=== PATIENT | male | born 1950 | race American Indian/Alaskan Native ===

== ENCOUNTER 2017-06-13 23:51 | Inpatient (IN) | payer MEDICARE, OTHER ==
[2017-06-14] MEDS ORDERED: NACL 0.9% 500 ML IR ONE (00:54)
--- NOTE | 2017-06-14 01:33 | Emergency Department Report ---
ED Male HPI - General Chief complaint: Urogenital-Male Stated complaint: ABDOMINAL PAIN Time Seen by Provider: 06/14/17 01:14 Source: patient, family Mode of arrival: Wheelchair Limitations: No Limitations - History of Present Illness Initial comments: Patient is 66 years old male with history of amyotrophic lateral sclerosis and benign prostatic hypertrophy. Patient presented to the ER with difficulty urinating since yesterday. Patient had history of urinary retention before. He 's been passing clots. Patient denied any fever, nausea or vomiting. MD Complaint: other (urine retention) -: Gradual - Related Data Allergies Allergy/AdvReac Type Severity Reaction Status Date / Time aspirin Allergy Vomiting Verified 06/14/17 00:21 ED Review of Systems ROS: Stated complaint: ABDOMINAL PAIN Other details as noted in HPI Comment: All other systems reviewed and negative Constitutional: denies: chills, fever Respiratory: denies: cough, orthopnea, shortness of breath, SOB with exertion Cardiovascular: denies: chest pain, palpitations, dyspnea on exertion Gastrointestinal: denies: abdominal pain, nausea, vomiting, diarrhea, constipation, hematemesis Genitourinary: dysuria, hematuria Neurological: denies: headache, weakness, numbness, paresthesias, confusion, abnormal gait ED Past Medical Hx - Past Medical History Additional medical history: ALS - Surgical History Additional Surgical History: back - Social History Smoking Status: Never Smoker Substance Use Type: None ED Physical Exam - General Limitations: No Limitations General appearance: alert, in no apparent distress - Head Head exam: Present: atraumatic, normocephalic, normal inspection - Eye Eye exam: Present: normal appearance, PERRL - ENT ENT exam: Present: normal exam, normal orophraynx, mucous membranes moist, normal external ear exam - Neck Neck exam: Present: normal inspection, full ROM. Absent: tenderness, meningismus, lymphadenopathy - Respiratory Respiratory exam: Present: normal lung sounds bilaterally. Absent: respiratory distress, wheezes, rales, rhonchi, stridor, accessory muscle use, decreased breath sounds, prolonged expiratory - Cardiovascular Cardiovascular Exam: Present: regular rate, normal rhythm, normal heart sounds - GI/Abdominal GI/Abdominal exam: Present: soft, tenderness (suprapubic), normal bowel sounds. Absent: distended, guarding, rebound, rigid, organomegaly, mass, bruit, pulsatile mass, hernia - Extremities Exam Extremities exam: Present: normal inspection, full ROM, normal capillary refill - Back Exam Back exam: Present: normal inspection, full ROM. Absent: CVA tenderness (L) - Neurological Exam Neurological exam: Present: alert, oriented X3, CN II-XII intact - Skin Skin exam: Present: warm, intact, normal color ED Course Vital Signs 06/14/17 00:06 Temperature 98.3 F Pulse Rate 107 H Respiratory 18 Rate Blood Pressure 159/103 O2 Sat by Pulse 96 Oximetry - Reevaluation(s) Reevaluation #1: 06/14/17 04:33 I discussed the patient was Dr Mata, he advised to admit the patient to hospitalist and he will see the patient. ED Medical Decision Making - Lab Data Result diagrams: 06/14/17 01:56 06/14/17 01:56 Critical care attestation.: If time is entered above; I have spent that time in minutes in the direct care of this critically ill patient, excluding procedure time. ED Disposition Clinical Impression: Enlarged prostate with urinary retention Disposition: OP ADMIT IP TO THIS HOSP Is pt being admited?: Yes Condition: Stable
[2017-06-14] MEDS ORDERED: ZOFRAN IM ONE (02:29)
[2017-06-14] MEDS ORDERED: MORPHINE IM ONE ×2 (02:29→03:48)
[2017-06-14] MEDS ORDERED: SUBLIMAZE IV ONE ×3 (02:34→05:10)
[2017-06-14 02:51] LABS: Basophils % (Auto) 0.4 % (0.0-1.8); Hematocrit 50.6 % (35.5-45.6); Lymphocytes # (Auto) 1.1 K/mm3 (1.2-5.4); Lymphocytes % (Auto) 13.8 % (13.4-35.0); Mean Corpuscular HGB Conc 34 % (32-34); Mean Corpuscular Hemoglobin 31 pg (28-32); Mean Corpuscular Volume 92 fl (84-94); Monocytes # (Auto) 0.4 K/mm3 (0.0-0.8); Monocytes % (Auto) 4.4 % (0.0-7.3); Platelet Count 232 K/mm3 (140-440); Red Blood Count 5.49 M/mm3 (3.65-5.03); Red Cell Distribution Width 13.6 % (13.2-15.2)
[2017-06-14 03:00] LABS: Alanine Aminotransferase 13 units/L (7-56); Albumin 4.5 g/dL (3.9-5); BUN/Creatinine Ratio 14; Blood Urea Nitrogen 11 mg/dL (9-20); Hemolysis Index 14
[2017-06-14 03:01] LABS: INR 1.05 (0.87-1.13)
[2017-06-14 03:02] LABS: Partial Thromboplastin Time 28.6 Sec. (24.2-36.6)
[2017-06-14] MEDS ORDERED: MORPHINE ONE (03:44)
[2017-06-14] MEDS ORDERED: ZOFRAN IV PRN ×2 (05:30→10:26)
[2017-06-14] MEDS ORDERED: MORPHINE IV PRN (05:30)
[2017-06-14] MEDS ORDERED: TYLENOL PO PRN (05:30)
[2017-06-14] MEDS ORDERED: SODIUM CHLORIDE FLUSH SYRINGE 10 ML IV PRN (05:30)
--- NOTE | 2017-06-14 05:31 | History and Physical Report ---
History of Present Illness Date of examination: 06/14/17 History of present illness: 66-year-old man with a history of ALS, review of systems emergency room with complaints of not able to urinate since yesterday. He is not on any medication for his prostate. A Foleyin the emergency room, some blood clots are obtained, he was started on CBI Review Of Systems: Constitutional: no weight loss Ears, eyes, nose, mouth and throat: no nasal congestion, no nasal discharge, no sinus pressure, blurry vision, diplopia Neck: No neck pain or rigidity. Cardiovascular: no chest pain, orthopnea, palpitations Respiratory: NO sinus breath, cough Gastrointestinal: no abdominal pain, hematochezia Genitourinary : no dysuria, frequency , hematuria Musculoskeletal: no muscle ache Integumentary: no rash, no pruritis Neurological: no parathesias, focal weakness Endocrine: no cold or heat intolerance, no polyuria or polydipsia Hematologic/Lymphatic: no easy bruising, no easy bleeding, no gland swelling Allergic/Immunologic: no urticaria, no angioedema. PAST MEDICAL HISTORY: None PAST SURGICAL HISTORY: c/section, hernia repair SOCIAL HISTORY: Denies alcohol, tobacco, drugs FAMILY HISTORY: Hypertension C Medications and Allergies Allergies Allergy/AdvReac Type Severity Reaction Status Date / Time aspirin Allergy Vomiting Verified 06/14/17 00:21 Active Meds: Active Medications Hydromorphone HCl (Dilaudid) 1 mg IV ONCE ONE Stop: 06/14/17 05:30 Exam - Physical Exam Narrative exam: Gen. appearance: Patient lying in bed, no apparent distress HEENT: Normocephalic, atraumatic, pupils equally round and reactive to light, extraocular movement intact, and no sclericterus,. No JVD or thyromegaly or nodule,neck supple, no carotid bruit ,mucous membranes moist, no exudate or erythema Heart: S1, S2, regular rate and rhythm Lungs: Clear to auscultation bilaterally, breathing comfortable Abdomen: Positive bowel sounds, nontender, nondistended, no organomegaly Extremity: No edema, cyanosis, clubbing Skin: No rash, nodules, warm, dry Neuro: Oriented 3, cranial nerves II-12 intact, speech is fluent, motor and sensory intact - Constitutional Vitals: Temp Pulse Resp BP Pulse Ox 98.3 F 107 H 18 159/103 96 06/14/17 00:06 06/14/17 00:06 06/14/17 00:06 06/14/17 00:06 06/14/17 00:06 Results - Labs CBC & Chem 7: 06/14/17 01:56 06/14/17 01:56 Labs: Abnormal lab results 06/14/17 06/14/17 Range/Units 01:56 01:56 RBC 5.49 H (3.65-5.03) M/mm3 Hgb 17.0 H (11.8-15.2) gm/dl Hct 50.6 H (35.5-45.6) % Lymph # 1.1 L (1.2-5.4) K/mm3 Seg Neutrophils % 81.4 H (40.0-70.0) % Glucose 122 H (75-100) mg/dL - Imaging and Cardiology EKG: image reviewed Chest x-ray: image reviewed CT scan - chest: report reviewed Assessment and Plan Assessment Urinary retention BPH ALS Plan Continue CBI, urology consult to see the patient DVT prophylaxis
[2017-06-14] MEDS ORDERED: DILAUDID IV ONE ×2 (05:39→05:40)
[2017-06-14] MEDS ORDERED: NACL 0.9% IR ONE (05:40)
--- NOTE | 2017-06-14 09:37 | Event Note ---
Date: 06/14/17 Patient with hematuria, urinary retention. I have seen and examined him. Urology to evaluate. Will add Hydralazine iv prn for hypertension.
[2017-06-14] MEDS ORDERED: APRESOLINE IV PRN (09:39)
--- NOTE | 2017-06-14 09:52 | Progress Note ---
Assessment and Plan severe sp distension ALS in a lot of pain for stat cysto dictated Subjective Date of service: 06/14/17 Principal diagnosis: hematuria // clots // retention Objective - Constitutional Vitals: Vital Signs - 12hr 06/14/17 06/14/17 06/14/17 00:06 05:35 05:40 Temperature 98.3 F Pulse Rate 107 H Respiratory 18 Rate Blood Pressure 159/103 Blood Pressure [Right] O2 Sat by Pulse 96 94 94 Oximetry 06/14/17 06/14/17 06/14/17 05:50 06:00 06:10 Temperature Pulse Rate Respiratory Rate Blood Pressure 168/115 Blood Pressure [Right] O2 Sat by Pulse 93 93 94 Oximetry 06/14/17 06/14/17 06:41 07:17 Temperature 98.7 F Pulse Rate 89 84 Respiratory 17 18 Rate Blood Pressure 163/110 Blood Pressure 160/100 [Right] O2 Sat by Pulse 98 97 Oximetry General appearance: Present: severe distress - Neck Neck: supple - Respiratory Respiratory effort: labored - Gastrointestinal General gastrointestinal: Present: tender, distended - Genitourinary Male genitourinary: tender - Labs CBC & Chem 7: 06/14/17 01:56 06/14/17 01:56 Labs: Abnormal lab results 06/14/17 06/14/17 Range/Units 01:56 01:56 RBC 5.49 H (3.65-5.03) M/mm3 Hgb 17.0 H (11.8-15.2) gm/dl Hct 50.6 H (35.5-45.6) % Lymph # 1.1 L (1.2-5.4) K/mm3 Seg Neutrophils % 81.4 H (40.0-70.0) % Glucose 122 H (75-100) mg/dL
[2017-06-14] MEDS ORDERED: DIPRIVAN 10 MG/ML IV ONE (09:59)
[2017-06-14] MEDS ORDERED: XYLOCAINE MPF 2% ONE (09:59)
[2017-06-14] MEDS ORDERED: LEVAQUIN 500MG/100ML 500 MG/100 ML BAG IV ONE (10:00)
[2017-06-14] MEDS ORDERED: DILAUDID ONE (10:00)
[2017-06-14] MEDS ORDERED: DILAUDID IV PRN (10:26)
--- NOTE | 2017-06-14 10:27 | Anesthesia Day of Surgery ---
Anesthesia Day of Surgery - Day of Surgery Patient Examined: Yes Patient H&P Reviewed: Yes Patient is NPO: Yes
[2017-06-14] MEDS ORDERED: NACL 0.9% 1000 ML 1,000 ML ONE (10:50)
[2017-06-14] MEDS: SODIUM CHLORIDE FLUSH SYRINGE 10 ML IV SCH ×2 (10:54→22:51)
[2017-06-14] MEDS ORDERED: VERSED IV NR (11:00)
[2017-06-14] MEDS ORDERED: SORBITOL-MANNITOL IRRIG IR ONE ×3 (11:26)
[2017-06-14] MEDS ORDERED: ZOFRAN ONE (11:37)
[2017-06-14] MEDS ORDERED: METHYLENE BLUE ONE (11:56)
[2017-06-14] MEDS ORDERED: LASIX ONE (12:23)
--- NOTE | 2017-06-14 12:32 | Post Operative Note ---
Date of procedure: 06/14/17 Pre-op diagnosis: hematuria clots Post-op diagnosis: same Findings: trauma Procedure: cysto evac clots tur Anesthesia: GETA Surgeon: JANICE MATTA Estimated blood loss: 50-100ml Pathology: list (bladder neck) Specimen disposition: to lab Condition: stable Disposition: PACU
--- NOTE | 2017-06-14 12:42 | Operative Report ---
PREOPERATIVE DIAGNOSES: Gross hematuria, urinary retention, clot retention. POSTOPERATIVE DIAGNOSES: Irregular trauma to the bladder neck and prostatic urethra with clot retention. PROCEDURE: Cystoscopy, evacuation of clots, fulguration, resection of the irregularity of the bladder neck, and cystogram. SURGEON: Jaswinder Mata MD ANESTHESIA: General. FINDINGS: This is a gentleman who was in severe pain. He has ALS. His bladder was distended to the umbilicus. He now presents for cystoscopy. DESCRIPTION OF PROCEDURE: The patient was brought to the operating room and placed on the operating table. Following induction of anesthesia, placed in lithotomy position, prepped and draped in usual sterile fashion. Cystourethroscopy showed blood from the meatus. The bladder was distended. The catheter was not draining. We looked inside the urethra. The bladder neck was severely elevated. There was a prominent bulbous urethra. There was no stricture. The tissue at the bladder neck was irregular and once we got in, we evacuated a good amount of clots and blood from the bladder. There were no bladder lesions. Bladder was smooth and nontrabeculated. Inflammatory changes in bladder neck and prostatic urethra. This was cauterized and a small amount of resection was done with minimal to flatten out the bladder neck. Even at the end, it was very hard to get a catheter in because of the elevation of bladder neck. We placed a 22 Councill which was minimally tinged. The patient tolerated the procedure well. Cystogram showed the catheter in good position, brought to recovery in stable condition. JOB# [id number] GREGORIO/AYANA
[2017-06-14] MEDS ORDERED: NACL 0.9% 1,000 ML IR ONE (12:52)
[2017-06-14] MEDS ORDERED: LEVAQUIN 500MG/100ML 500 MG/100 ML BAG IV NR (13:00)
--- NOTE | 2017-06-14 13:23 | Consultation ---
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 He has been catheterizing himself and had gross hematuria. He is still with clots. He was admitted through the Emergency Room in the middle of the night. His bladder is distended. He is in lots of pain at this point. He is still with clots, I suspect. He cannot communicate well. He does not have an urologist. He thinks he has had a cystoscopy, but he is in a lot of pain, here with his son. PAST MEDICAL HISTORY: ALS. PAST SURGICAL HISTORY: No surgery. SOCIAL HISTORY: Negative. FAMILY HISTORY: Negative. ALLERGIES: Negative. MEDICATION: Pain medications. REVIEW OF SYSTEMS: Abdominal pain, difficulty speaking. PHYSICAL EXAMINATION: GENERAL: He is awake. He is in pain. He is uncomfortable. He has slurred speech. He is in moderate distress. ABDOMEN: Distended to his umbilicus. Solares is not draining. ____ GENITALIA: Mild tenderness around the catheter. GENITOURINARY: Testes are atrophic. IMPRESSION: Urinary retention. His hemoglobin is fine. His creatinine is 0.8. We will give him 500 of Levaquin and take him down for cystoscopy as soon as the OR is ready. JOB# [id number] GREGORIO/AYANA
[2017-06-14 14:26] LABS: Bilirubin,Urine NEG (Negative); Blood,Urine LG (Negative); Color,Urine Red (Yellow); Urobilinogen,Urine < 2.0 mg/dL (<2.0)
[2017-06-14 14:29] LABS: RBC,Urine > 182.0 /HPF (0.0-6.0); WBC,Urine > 182.0 /HPF (0.0-6.0)
[2017-06-14] MEDS: NACL 0.9% 1000 ML 1,000 ML IV SCH (20:57)
[2017-06-15] MEDS: NACL 0.9% 1000 ML 1,000 ML IV SCH (05:39)
--- NOTE | 2017-06-15 08:05 | Progress Note ---
History Interval history: patient with urinary retention, hematuria Hospitalist Physical - Constitutional Vitals: Temp Pulse Resp BP Pulse Ox 98.7 F 75 19 129/77 94 06/14/17 23:18 06/14/17 23:18 06/14/17 23:18 06/14/17 23:18 06/14/17 23:18 General appearance: Present: severe distress Results - Labs CBC & Chem 7: 06/15/17 07:26 06/15/17 07:26 Labs: Laboratory Last Values WBC 8.0 K/mm3 (4.5-11.0) 06/14/17 01:56 RBC 5.49 M/mm3 (3.65-5.03) H 06/14/17 01:56 Hgb 17.0 gm/dl (11.8-15.2) H 06/14/17 01:56 Hct 50.6 % (35.5-45.6) H 06/14/17 01:56 MCV 92 fl (84-94) 06/14/17 01:56 MCH 31 pg (28-32) 06/14/17 01:56 MCHC 34 % (32-34) 06/14/17 01:56 RDW 13.6 % (13.2-15.2) 06/14/17 01:56 Plt Count 232 K/mm3 (140-440) 06/14/17 01:56 Lymph % (Auto) 13.8 % (13.4-35.0) 06/14/17 01:56 [place] % (Auto) 4.4 % (0.0-7.3) 06/14/17 01:56 Eos % (Auto) 0.0 % (0.0-4.3) 06/14/17 01:56 Baso % (Auto) 0.4 % (0.0-1.8) 06/14/17 01:56 Lymph # 1.1 K/mm3 (1.2-5.4) L 06/14/17 01:56 [place] # 0.4 K/mm3 (0.0-0.8) 06/14/17 01:56 Eos # 0.0 K/mm3 (0.0-0.4) 06/14/17 01:56 Baso # 0.0 K/mm3 (0.0-0.1) 06/14/17 01:56 Seg Neutrophils % 81.4 % (40.0-70.0) H 06/14/17 01:56 Seg Neutrophils # 6.5 K/mm3 (1.8-7.7) 06/14/17 01:56 PT 14.3 Sec. (12.2-14.9) 06/14/17 01:56 INR 1.05 (0.87-1.13) 06/14/17 01:56 APTT 28.6 Sec. (24.2-36.6) 06/14/17 01:56 Sodium 137 mmol/L (137-145) 06/14/17 01:56 Potassium 3.8 mmol/L (3.6-5.0) 06/14/17 01:56 Chloride 98.5 mmol/L (98-107) 06/14/17 01:56 Carbon Dioxide 22 mmol/L (22-30) 06/14/17 01:56 Anion Gap 20 mmol/L 06/14/17 01:56 BUN 11 mg/dL (9-20) 06/14/17 01:56 Creatinine 0.8 mg/dL (0.8-1.5) 06/14/17 01:56 Estimated GFR > 60 ml/min 06/14/17 01:56 BUN/Creatinine Ratio 14 % 06/14/17 01:56 Glucose 122 mg/dL (75-100) H 06/14/17 01:56 Calcium 9.0 mg/dL (8.4-10.2) 06/14/17 01:56 Total Bilirubin 0.90 mg/dL (0.1-1.2) 06/14/17 01:56 AST 22 units/L (5-40) 06/14/17 01:56 ALT 13 units/L (7-56) 06/14/17 01:56 Alkaline Phosphatase 58 units/L (35-129) 06/14/17 01:56 Total Protein 7.3 g/dL (6.3-8.2) 06/14/17 01:56 Albumin 4.5 g/dL (3.9-5) 06/14/17 01:56 Albumin/Globulin Ratio 1.6 % 06/14/17 01:56 Urine Color Red (Yellow) 06/14/17 13:39 Urine Turbidity Clear (Clear) 06/14/17 13:39 Urine pH 6.0 (5.0-7.0) 06/14/17 13:39 Ur Specific [place] 1.004 (1.003-1.030) 06/14/17 13:39 Urine Protein 30 mg/dl mg/dL (Negative) 06/14/17 13:39 Urine Glucose (UA) Neg mg/dL (Negative) 06/14/17 13:39 Urine Ketones Neg mg/dL (Negative) 06/14/17 13:39 Urine Blood Lg (Negative) 06/14/17 13:39 Urine Nitrite Neg (Negative) 06/14/17 13:39 Urine Bilirubin Neg (Negative) 06/14/17 13:39 Urine Urobilinogen < 2.0 mg/dL (<2.0) 06/14/17 13:39 Ur Leukocyte Esterase Tr (Negative) 06/14/17 13:39 Urine WBC (Auto) > 182.0 /HPF (0.0-6.0) H 06/14/17 13:39 Urine RBC (Auto) > 182.0 /HPF (0.0-6.0) 06/14/17 13:39
[2017-06-15 08:10] LABS: Basophils % (Auto) 0.2 % (0.0-1.8); Eosinophils % (Auto) 0.2 % (0.0-4.3); Hematocrit 43.2 % (35.5-45.6); Hemoglobin 14.5 gm/dl (11.8-15.2); Lymphocytes # (Auto) 1.6 K/mm3 (1.2-5.4); Lymphocytes % (Auto) 17.4 % (13.4-35.0); Mean Corpuscular HGB Conc 34 % (32-34); Mean Corpuscular Hemoglobin 31 pg (28-32); Mean Corpuscular Volume 93 fl (84-94); Monocytes # (Auto) 0.9 K/mm3 (0.0-0.8); Monocytes % (Auto) 9.2 % (0.0-7.3); Platelet Count 168 K/mm3 (140-440); Red Blood Count 4.65 M/mm3 (3.65-5.03); Red Cell Distribution Width 13.6 % (13.2-15.2)
[2017-06-15 08:29] LABS: BUN/Creatinine Ratio 16; Blood Urea Nitrogen 16 mg/dL (9-20); Calcium 7.9 mg/dL (8.4-10.2); Hemolysis Index 9
--- NOTE | 2017-06-15 08:29 | Fluoroscopy Report ---
FLUOROSCOPY CYSTOGRAM STATIC - OR INDICATION: Urine retention, blood clots, hematuria. COMPARISON: None similar at this institution. FINDINGS: Fluoroscopy provided by radiology during static cystogram by urology. 25 mL Omnipaque 300 utilized. 5 fluoroscopic images were captured. Initial image demonstrates lower lumbar fusion hardware and posterior decompression changes. Contrast along a catheter also noted with later images demonstrating it advanced into the urinary bladder with small amount of contrast surrounding its balloon and slight irregular filling of the urinary bladder as well. No contrast noted towards the bladder base. Fulguration of irregular tissue, evacuation of blood clots and cystogram was performed. Final image labelled "Drainage" demonstrates no residual bladder contrast. CONCLUSION: Fluoroscopy guidance provided for intraoperative cystogram, as described. Please correlate with procedural report by Dr. Mata. Thank you for the opportunity to participate in this patient's care.
[2017-06-15] MEDS: SODIUM CHLORIDE FLUSH SYRINGE 10 ML IV SCH (10:04)
--- NOTE | 2017-06-15 12:18 | Progress Note ---
Assessment and Plan markedly improved happy no pain here with son home with keller when medically cleared f/u gu in 2 weeks Subjective Date of service: 06/15/17 Principal diagnosis: hematuria // clots // retention Objective - Constitutional Vitals: Vital Signs - 12hr 06/15/17 07:25 Temperature 97.3 F L Pulse Rate 65 Respiratory 18 Rate Blood Pressure 118/77 O2 Sat by Pulse 95 Oximetry General appearance: Present: no acute distress - Labs CBC & Chem 7: 06/15/17 07:26 06/15/17 07:26 Labs: Abnormal lab results 06/14/17 06/15/17 06/15/17 Range/Units 13:39 07:26 07:26 [place] % (Auto) 9.2 H (0.0-7.3) % [place] # 0.9 H (0.0-0.8) K/mm3 Seg Neutrophils % 73.0 H (40.0-70.0) % Chloride 107.3 H (98-107) mmol/L Calcium 7.9 L (8.4-10.2) mg/dL Urine WBC (Auto) > 182.0 H (0.0-6.0) /HPF
--- NOTE | 2017-06-15 14:17 | Discharge Summary ---
Providers - Providers Date of Admission: 06/14/17 05:30 Date of discharge: 06/15/17 Attending physician: DWAINE KING 06/14/17 04:32 Consult to Physician [CONS] Stat Comment: Dr. Loya (er dr) spoke with Dr. Matta Consulting Provider: JANICE MATTA Physician Instructions: Reason For Exam: here in the retention with clots Primary care physician: DWAINE WATTERS Hospitalization Condition: Fair Disposition: DC-01 TO HOME OR SELFCARE Core Measure Documentation - Palliative Care Palliative Care/ Comfort Measures: Not Applicable Exam - Constitutional Vitals: Temp Pulse Resp BP Pulse Ox 97.3 F L 65 18 118/77 95 06/15/17 07:25 06/15/17 07:25 06/15/17 07:25 06/15/17 07:25 06/15/17 07:25 Plan Activity: advance as tolerated Diet: low fat, low cholesterol, low salt Additional Instructions: 1.Follow up with PCP in 1 week. 2.Follow up with Dr. Pinto in 2 weeks. 3.Discharge home with keller catheter,leg bag.
[2017-06-15] MEDS ORDERED: LEVAQUIN 500MG/100ML 500 MG/100 ML BAG IV SCH (15:00)
[2017-06-15 17:16] VITALS: BP 134/79
== END 2017-06-15 18:10 | disposition home or self-care (01) | DRG 717 ==
LOC: ED 23:51 → 3A 06-14 05:30
PROVIDERS: ADMIT Internal Medicine; ATTEND Internal Medicine
PROC: 0TBB8ZZ Excision of Bladder, Via Natural or Artificial Opening Endoscopic (ICD-10-PCS; principal; 2017-06-14)
PROC: 0TCC8ZZ Extirpation of Matter from Bladder Neck, Via Natural or Artificial Opening Endoscopic (ICD-10-PCS; 2017-06-14)
DX: N40.1 Benign prostatic hyperplasia with lower urinary tract symptoms (principal); G12.21 Amyotrophic lateral sclerosis; R33.8 Other retention of urine; Z88.6 Allergy status to analgesic agent; Z82.49 Family history of ischemic heart disease and other diseases of the circulatory system
CPT/HCPCS: 36415; 74430; 80048; 80053; 81001; 85025; 85610; 85730; 87086; 88305; 96372; 96374; J1170; J1940; J1956; J2270; J2405; J2704; J3010; J7030; Q9967; Q9968

== ENCOUNTER 2017-07-10 14:31 | Inpatient (IN) | payer MEDICARE, OTHER ==
[2017-07-10] MEDS ORDERED: DILAUDID IV ONE ×2 (18:00→20:34)
[2017-07-10 18:20] LABS: Basophils % (Auto) 0.3 % (0.0-1.8); Hematocrit 50.8 % (35.5-45.6); Hemoglobin 16.8 gm/dl (11.8-15.2); Lymphocytes # (Auto) 0.7 K/mm3 (1.2-5.4); Lymphocytes % (Auto) 7.8 % (13.4-35.0); Mean Corpuscular HGB Conc 33 % (32-34); Mean Corpuscular Hemoglobin 30 pg (28-32); Mean Corpuscular Volume 92 fl (84-94); Monocytes # (Auto) 0.3 K/mm3 (0.0-0.8); Monocytes % (Auto) 3.2 % (0.0-7.3); Platelet Count 261 K/mm3 (140-440); Red Blood Count 5.55 M/mm3 (3.65-5.03); Red Cell Distribution Width 13.1 % (13.2-15.2)
[2017-07-10 18:31] LABS: INR 1.02 (0.87-1.13)
[2017-07-10 18:32] LABS: Partial Thromboplastin Time 29.1 Sec. (24.2-36.6)
[2017-07-10 18:40] LABS: Alanine Aminotransferase 11 units/L (7-56); Albumin 4.3 g/dL (3.9-5); BUN/Creatinine Ratio 14; Blood Urea Nitrogen 11 mg/dL (9-20); Hemolysis Index 0
--- NOTE | 2017-07-10 20:28 | Emergency Department Report ---
ED Male HPI - General Chief complaint: Urogenital-Male Stated complaint: CATHETER CLOGGED Time Seen by Provider: 07/10/17 17:17 Source: patient Mode of arrival: Wheelchair Limitations: No Limitations - History of Present Illness Initial comments: Patient complains of Solares catheter done on any urine. He is also having suprapubic abdominal pain. MD Complaint: other (Solares catheter is blocked.) -: Gradual Radiation: none Severity: severe Severity scale (0 -10): 8 Quality: sharp Consistency: constant Improves with: none Worsens with: none indwelling catheter urinary retention - Related Data Previous Rx's Medication Instructions Recorded Last Taken Type Levofloxacin [Levaquin TAB] 500 mg PO QDAY #10 tablet 06/15/17 Unknown Rx Allergies Allergy/AdvReac Type Severity Reaction Status Date / Time aspirin Allergy Vomiting Verified 06/14/17 00:21 ED Review of Systems ROS: Stated complaint: CATHETER CLOGGED Other details as noted in HPI Comment: All other systems reviewed and negative Constitutional: denies: chills, fever Eyes: denies: vision change ENT: denies: congestion Respiratory: denies: shortness of breath, SOB with exertion, SOB at rest Cardiovascular: denies: chest pain, palpitations, syncope Endocrine: no symptoms reported Gastrointestinal: abdominal pain, diarrhea. denies: nausea, vomiting, constipation Genitourinary: other (Urinary Obstruction) Musculoskeletal: denies: back pain, joint swelling Skin: denies: lesions, change in color Neurological: denies: headache, numbness, paresthesias Psychiatric: denies: anxiety, auditory hallucinations, visual hallucinations Hematological/Lymphatic: denies: easy bleeding, easy bruising ED Past Medical Hx - Past Medical History Previous Medical History?: Yes Additional medical history: ALS, indwelling cath - Surgical History Additional Surgical History: back - Social History Smoking Status: Unknown if ever smoked Substance Use Type: None - Medications Home Medications: Home Medications Medication Instructions Recorded Confirmed Last Taken Type Levofloxacin [Levaquin TAB] 500 mg PO QDAY #10 tablet 06/15/17 Unknown Rx ED Physical Exam - General Limitations: Other (Dinorah Gherigs disease) General appearance: alert - Head Head exam: Present: atraumatic, normocephalic, normal inspection - Eye Eye exam: Present: normal appearance, PERRL, EOMI Pupils: Present: normal accommodation - ENT ENT exam: Present: normal exam - Neck Neck exam: Present: normal inspection, full ROM - Respiratory Respiratory exam: Present: normal lung sounds bilaterally. Absent: wheezes, rhonchi - Cardiovascular Cardiovascular Exam: Present: regular rate, normal rhythm, normal heart sounds - GI/Abdominal GI/Abdominal exam: Present: soft, normal bowel sounds. Absent: distended (Mild suprapubic tenderness to palpation.), guarding, organomegaly, mass - Rectal Rectal exam: Present: deferred - exam: Present: normal inspection, urethral discharge External exam: Present: normal external exam - Extremities Exam Extremities exam: Present: normal inspection, full ROM, normal capillary refill. Absent: pedal edema - Back Exam Back exam: Present: normal inspection, full ROM - Neurological Exam Neurological exam: Present: alert, oriented X3 - Psychiatric Psychiatric exam: Present: normal affect - Skin Skin exam: Present: warm, dry, intact, normal color. Absent: rash ED Course Vital Signs 07/10/17 07/10/17 07/10/17 14:45 17:09 17:16 Temperature 97.8 F Pulse Rate 107 H 109 H 103 H Respiratory 20 14 15 Rate Blood Pressure 154/98 182/144 Blood Pressure [Right] O2 Sat by Pulse 98 96 Oximetry 07/10/17 07/10/17 07/10/17 17:30 17:45 18:00 Temperature 98.5 F Pulse Rate 94 H 89 91 H Respiratory 19 18 19 Rate Blood Pressure 145/90 140/86 140/86 Blood Pressure 147/90 [Right] O2 Sat by Pulse 100 96 96 Oximetry 07/10/17 07/10/17 07/10/17 18:15 18:16 18:30 Temperature Pulse Rate 93 H 91 H Respiratory 14 18 13 Rate Blood Pressure 121/78 119/80 Blood Pressure [Right] O2 Sat by Pulse 94 95 Oximetry 07/10/17 18:45 Temperature Pulse Rate 95 H Respiratory 14 Rate Blood Pressure 132/87 Blood Pressure [Right] O2 Sat by Pulse 95 Oximetry - Consultations Consultation #1: 07/10/17 20:31 I consulted the patient's urologist dr Jaswinder Mata. He recommend removing the Solares catheter. Treat the patient with the medication and antibiotics preferably Levaquin. Admit patient to the hospitalist and he will consult on the patient in the morning. ED Medical Decision Making - Lab Data Result diagrams: 07/10/17 18:03 07/10/17 18:03 - Differential Diagnosis Urinary Obstruction. Critical care attestation.: If time is entered above; I have spent that time in minutes in the direct care of this critically ill patient, excluding procedure time. ED Disposition Clinical Impression: Urinary tract obstruction Is pt being admited?: Yes Does the pt Need Aspirin: No Condition: Stable Referrals: DWAINE WATTERS MD [Primary Care Provider] - 3-5 Days
[2017-07-10] MEDS ORDERED: DILAUDID ONE (20:32)
[2017-07-10] MEDS ORDERED: ZOFRAN IV PRN (21:31)
[2017-07-10] MEDS ORDERED: SODIUM CHLORIDE FLUSH SYRINGE 10 ML IV PRN (21:31)
[2017-07-10] MEDS ORDERED: TYLENOL PO PRN (21:31)
--- NOTE | 2017-07-10 21:50 | History and Physical Report ---
History of Present Illness Date of examination: 07/10/17 Date of admission: 07/10/17 20:44 History of present illness: 66-year-old man with a history of ALS, review of systems emergency room with complaints of not able to urinate since yesterday. He had a keller place July 02 was was removed in the emergency room Review Of Systems: Constitutional: no weight loss Ears, eyes, nose, mouth and throat: no nasal congestion, no nasal discharge, no sinus pressure, blurry vision, diplopia Neck: No neck pain or rigidity. Cardiovascular: no chest pain, orthopnea, palpitations Respiratory: NO sinus breath, cough Gastrointestinal: no abdominal pain, hematochezia Genitourinary : no dysuria, frequency , hematuria Musculoskeletal: no muscle ache Integumentary: no rash, no pruritis Neurological: no parathesias, focal weakness Endocrine: no cold or heat intolerance, no polyuria or polydipsia Hematologic/Lymphatic: no easy bruising, no easy bleeding, no gland swelling Allergic/Immunologic: no urticaria, no angioedema. PAST MEDICAL HISTORY: ALS PAST SURGICAL HISTORY: back surgery SOCIAL HISTORY: Denies alcohol, tobacco, drugs FAMILY HISTORY: Hypertension C Medications and Allergies Allergies Allergy/AdvReac Type Severity Reaction Status Date / Time aspirin Allergy Vomiting Verified 06/14/17 00:21 Home Medications Medication Instructions Recorded Confirmed Last Taken Type Levofloxacin [Levaquin TAB] 500 mg PO QDAY #10 tablet 06/15/17 Unknown Rx Active Meds: Active Medications Acetaminophen (Tylenol) 650 mg PO Q4H PRN PRN Reason: Pain MILD(1-3)/Fever >100.5/OCHOA Morphine Sulfate (Morphine) 2 mg IV Q4H PRN PRN Reason: Pain, Moderate (4-6) Ondansetron HCl (Zofran) 4 mg IV Q8H PRN PRN Reason: Nausea And Vomiting Sodium Chloride (Sodium Chloride Flush Syringe 10 Ml) 10 ml IV BID NANCY Sodium Chloride (Sodium Chloride Flush Syringe 10 Ml) 10 ml IV PRN PRN PRN Reason: LINE FLUSH Exam - Constitutional Vitals: Temp Pulse Resp BP Pulse Ox 98.5 F 95 H 14 132/87 95 07/10/17 17:30 07/10/17 18:45 07/10/17 18:45 07/10/17 18:45 07/10/17 18:45 Results - Labs CBC & Chem 7: 07/10/17 18:03 07/10/17 18:03 Labs: Abnormal lab results 07/10/17 07/10/17 Range/Units 18:03 18:03 RBC 5.55 H (3.65-5.03) M/mm3 Hgb 16.8 H (11.8-15.2) gm/dl Hct 50.8 H (35.5-45.6) % RDW 13.1 L (13.2-15.2) % Lymph % (Auto) 7.8 L (13.4-35.0) % Lymph # 0.7 L (1.2-5.4) K/mm3 Seg Neutrophils % 88.7 H (40.0-70.0) % Seg Neutrophils # 8.1 H (1.8-7.7) K/mm3 Glucose 111 H (75-100) mg/dL Assessment and Plan Assessment Urinary retention BPH ALS Plan NPO per urology, for procedure in the morning urology consult, IV levaquin DVT prophylaxis
[2017-07-10] MEDS: SODIUM CHLORIDE FLUSH SYRINGE 10 ML IV SCH (22:05)
[2017-07-10] MEDS: MORPHINE IV PRN (23:43)
[2017-07-11] MEDS: MORPHINE IV PRN (04:13)
[2017-07-11 06:34] LABS: Basophils % (Auto) 0.2 % (0.0-1.8); Hematocrit 51.2 % (35.5-45.6); Hemoglobin 16.6 gm/dl (11.8-15.2); Lymphocytes # (Auto) 0.7 K/mm3 (1.2-5.4); Mean Corpuscular HGB Conc 33 % (32-34); Mean Corpuscular Hemoglobin 30 pg (28-32); Mean Corpuscular Volume 94 fl (84-94); Monocytes # (Auto) 0.4 K/mm3 (0.0-0.8); Monocytes % (Auto) 4.1 % (0.0-7.3); Platelet Count 267 K/mm3 (140-440); Red Blood Count 5.46 M/mm3 (3.65-5.03); Red Cell Distribution Width 13.5 % (13.2-15.2)
[2017-07-11 06:47] LABS: BUN/Creatinine Ratio 16; Blood Urea Nitrogen 16 mg/dL (9-20); Calcium 9.1 mg/dL (8.4-10.2); Hemolysis Index 6
[2017-07-11] MEDS ORDERED: LEVAQUIN 500MG/100ML 500 MG/100 ML BAG IV SCH (08:00)
--- NOTE | 2017-07-11 08:19 | Progress Note ---
Assessment and Plan recurerent retention for cysto get ct ALS .. hard to get full history Subjective Date of service: 07/11/17 Principal diagnosis: hematuria Objective - Constitutional Vitals: Vital Signs - 12hr 07/10/17 22:44 Temperature 98.1 F Pulse Rate 101 H Respiratory 20 Rate Blood Pressure 169/117 O2 Sat by Pulse 94 Oximetry General appearance: Present: mild distress - Respiratory Respiratory effort: normal Extremities: no ischemia - Gastrointestinal General gastrointestinal: Present: tender - Labs CBC & Chem 7: 07/11/17 05:34 07/11/17 05:34 Labs: Abnormal lab results 07/10/17 07/10/17 07/11/17 Range/Units 18:03 18:03 05:34 RBC 5.55 H 5.46 H (3.65-5.03) M/mm3 Hgb 16.8 H 16.6 H (11.8-15.2) gm/dl Hct 50.8 H 51.2 H (35.5-45.6) % RDW 13.1 L (13.2-15.2) % Lymph % (Auto) 7.8 L 7.0 L (13.4-35.0) % Lymph # 0.7 L 0.7 L (1.2-5.4) K/mm3 Seg Neutrophils % 88.7 H 88.7 H (40.0-70.0) % Seg Neutrophils # 8.1 H 9.3 H (1.8-7.7) K/mm3 Glucose 111 H (75-100) mg/dL 07/11/17 Range/Units 05:34 RBC (3.65-5.03) M/mm3 Hgb (11.8-15.2) gm/dl Hct (35.5-45.6) % RDW (13.2-15.2) % Lymph % (Auto) (13.4-35.0) % Lymph # (1.2-5.4) K/mm3 Seg Neutrophils % (40.0-70.0) % Seg Neutrophils # (1.8-7.7) K/mm3 Glucose 128 H (75-100) mg/dL
[2017-07-11] MEDS ORDERED: NACL 0.9% 1000 ML 1,000 ML ONE (09:06)
[2017-07-11] MEDS ORDERED: DILAUDID IV PRN (09:13)
[2017-07-11] MEDS ORDERED: ZOFRAN IV PRN (09:13)
--- NOTE | 2017-07-11 09:13 | Anesthesia Day of Surgery ---
Anesthesia Day of Surgery - Day of Surgery Patient Examined: Yes Patient H&P Reviewed: Yes Patient is NPO: Yes
--- NOTE | 2017-07-11 09:13 | Anesthesia Consultation ---
Anesthesia Consult and Med Hx Date of service: 07/11/17 - Airway Anesthetic Teeth Evaluation: Good ROM Head & Neck: Adequate Mental/Hyoid Distance: Adequate Mallampati Class: Class I Intubation Access Assessment: Good - Pulmonary Exam CTA: Yes - Cardiac Exam Cardiac Exam: RRR - Pre-Operative Health Status ASA Pre-Surgery Classification: ASA3 Proposed Anesthetic Plan: General (GA with LMA ok) - Pulmonary Hx Smoking: No Hx Asthma: No COPD: No Hx Pneumonia: No Hx Sleep Apnea: Yes - Endocrine Hx End Stage Renal Disease: No - Hematic Hx Anemia: No - Other Systems Hx Cancer: No
[2017-07-11] MEDS ORDERED: NACL 0.9% IR ONE (09:22)
[2017-07-11] MEDS ORDERED: SORBITOL-MANNITOL IRRIG IR ONE (09:22)
[2017-07-11] MEDS ORDERED: WATER FOR IRRIG STERILE IR ONE (09:22)
[2017-07-11] MEDS ORDERED: OMNIPAQUE 300 MG/50 ML (CATH LAB) IV ONE (09:22)
[2017-07-11] MEDS ORDERED: DIPRIVAN 10 MG/ML IV ONE (10:00)
[2017-07-11] MEDS ORDERED: XYLOCAINE MPF 2% ONE (10:00)
[2017-07-11] MEDS: SODIUM CHLORIDE FLUSH SYRINGE 10 ML IV SCH ×2 (10:00→21:55)
[2017-07-11] MEDS ORDERED: SUBLIMAZE ONE (10:00)
[2017-07-11] MEDS ORDERED: VERSED IV NR (10:00)
[2017-07-11] MEDS ORDERED: NEO SYNEPHRINE/NS Syringe(OR USE) IV ONE (10:00)
--- NOTE | 2017-07-11 10:35 | Post Operative Note ---
Date of procedure: 07/11/17 Pre-op diagnosis: urinary retention Post-op diagnosis: same Findings: smooth bladder no clots Procedure: cysto fulg spt Anesthesia: GETA Surgeon: JANICE MATTA Estimated blood loss: minimal Pathology: none Condition: stable Disposition: PACU
--- NOTE | 2017-07-11 11:11 | Post Anesthesia Evaluation ---
- Post Anesthesia Evaluation Patient Participated: Yes Airway Patent: Yes Stable Respiratory Function: Yes Nausea/Vomiting: No Temp > 96.8F: Yes Pain Manageable: Yes Adequeate Hydration: Yes Anesthesia Complications: No
[2017-07-11] MEDS ORDERED: NACL 0.9% 2,000 ML ONE ×2 (11:35→11:36)
--- NOTE | 2017-07-11 11:53 | Fluoroscopy Report ---
CYSTOGRAM STATIC, ONE VIEW History: Recurrent urinary retention. Findings: Fluoroscopy was provided by radiology during cystogram by urology. 4 fluoroscopic images were captured. The images demonstrate contrast within the bladder as well as a Solares catheter. There is no obvious filling defect or extravasation from the bladder. Fulguration of the bladder neck was performed and a suprapubic tube was inserted per the operative notes. Please correlate with the procedural report as needed. Impression: No abnormality identified.
--- NOTE | 2017-07-11 11:58 | Operative Report ---
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 Minimal hematuria. PROCEDURE: Cystoscopy, fulguration of the bladder neck. There were no bladder clot, insertion of suprapubic cystostomy and Solares catheter. SURGEON: Jaswinder Mata MD. ANESTHESIA: General. FINDINGS: The gentleman with recurrent retention. He has Dinorah Gehrig's disease, progressive weakness and aphasia, now presents for treatment. All risks and implications discussed. DESCRIPTION OF PROCEDURE: The patient brought to the operating room and placed on the operating table. Following induction of anesthesia, placed in lithotomy position, prepped and draped in usual sterile fashion. He was moderately contracted, so we could and spread his legs much. Cystoscopy showed no active bleeding. Minimal oozing at the bladder neck. There were no clots in the bladder. Again, the bladder epithelium was very smooth, not trabeculated. This led me to believe that most of this is a neurological issue. At this point, minimal fulguration was carried out. There were no clots. No active bleeding. Using the [place], a 20-Austrian suprapubic was placed and brought out through the urethral meatus. This was followed with the flexible scope and it was in good position. The patient tolerated the procedure well. Cystogram showed good placement. No significant complications. A Dominguez drip through the suprapubic tube and out through the Solares was carried out, it was perfectly clear and since the catheter was secured with silk and brought to recovery in stable condition. JOB# [id number] GREGORIO/AYANA
[2017-07-11] MEDS: LACTATED RINGERS 1,000 ML IV SCH ×2 (13:36→23:48)
--- NOTE | 2017-07-11 15:04 | Progress Note ---
Assessment and Plan - Patient Problems (1) Enlarged prostate with urinary retention Current Visit: No Status: Acute Subjective Date of service: 07/11/17 Principal diagnosis: hematuria Objective - Constitutional Vitals: Vital Signs - 12hr 07/11/17 07/11/17 07/11/17 07:16 08:05 08:55 Temperature 99.6 F 99.1 F Pulse Rate 98 H 93 H Respiratory 20 20 Rate Blood Pressure 165/106 152/100 O2 Sat by Pulse 95 96 96 Oximetry 07/11/17 07/11/17 07/11/17 09:15 10:38 10:45 Temperature 99.1 F 97.3 F L Pulse Rate 93 H 90 90 Respiratory 20 15 15 Rate Blood Pressure 152/100 142/83 144/89 O2 Sat by Pulse 96 100 100 Oximetry 07/11/17 07/11/17 07/11/17 10:50 10:55 11:10 Temperature Pulse Rate 89 90 83 Respiratory 14 15 14 Rate Blood Pressure 145/88 145/81 131/85 O2 Sat by Pulse 100 100 100 Oximetry 07/11/17 07/11/17 07/11/17 11:25 11:40 11:55 Temperature 97.2 F L 97.4 F L Pulse Rate 82 86 89 Respiratory 15 14 16 Rate Blood Pressure 130/89 140/88 142/87 O2 Sat by Pulse 100 100 98 Oximetry General appearance: Present: no acute distress, well-nourished - EENT Eyes: PERRL, EOM intact ENT: hearing intact, clear oral mucosa Ears: bilateral: normal - Neck Neck: supple, normal ROM - Respiratory Respiratory effort: normal Respiratory: bilateral: CTA - Breasts Breasts: normal - Cardiovascular Rhythm: regular Heart Sounds: Present: S1 & S2. Absent: gallop, rub Extremities: pulses intact, No edema, normal color, Full ROM - Gastrointestinal General gastrointestinal: Present: soft, non-tender, non-distended, normal bowel sounds - Genitourinary Male genitourinary: normal - Integumentary Integumentary: clear, warm, dry - Musculoskeletal Musculoskeletal: 1, strength equal bilaterally - Neurologic Neurologic: moves all extremities - Psychiatric Psychiatric: memory intact, appropriate mood/affect, intact judgment & insight - Labs CBC & Chem 7: 07/11/17 05:34 07/11/17 05:34 Labs: Abnormal lab results 0407/10/17 07/11/17 Range/Units 18:03 18:03 05:34 RBC 5.55 H 5.46 H (3.65-5.03) M/mm3 Hgb 16.8 H 16.6 H (11.8-15.2) gm/dl Hct 50.8 H 51.2 H (35.5-45.6) % RDW 13.1 L (13.2-15.2) % Lymph % (Auto) 7.8 L 7.0 L (13.4-35.0) % Lymph # 0.7 L 0.7 L (1.2-5.4) K/mm3 Seg Neutrophils % 88.7 H 88.7 H (40.0-70.0) % Seg Neutrophils # 8.1 H 9.3 H (1.8-7.7) K/mm3 Glucose 111 H (75-100) mg/dL 07/11/17 Range/Units 05:34 RBC (3.65-5.03) M/mm3 Hgb (11.8-15.2) gm/dl Hct (35.5-45.6) % RDW (13.2-15.2) % Lymph % (Auto) (13.4-35.0) % Lymph # (1.2-5.4) K/mm3 Seg Neutrophils % (40.0-70.0) % Seg Neutrophils # (1.8-7.7) K/mm3 Glucose 128 H (75-100) mg/dL
[2017-07-11 18:25] LABS: Bilirubin,Urine NEG (Negative); Blood,Urine LG (Negative); Color,Urine Yellow (Yellow); Urobilinogen,Urine < 2.0 mg/dL (<2.0)
--- NOTE | 2017-07-11 20:49 | Consultation ---
HISTORY OF PRESENT ILLNESS: The patient is a 66-year-old gentleman who presented back to the hospital with a catheter that was no longer draining. The catheter was removed. They had trouble placing it. He has a very elevated bladder neck. Approximately a month ago, we evacuated out clots. He came back. He was having trouble voiding. A small catheter was placed. It was no longer draining as of Tuesday, so the catheter was removed in the Emergency Room. He has some mild to moderate discomfort. He will get a CT scan now. PAST MEDICAL HISTORY: He has ALS. He is aphasic. He is here with his son. PAST SURGICAL HISTORY: He had back surgery, has also had some cysto about a month ago. SOCIAL HISTORY: Negative. FAMILY HISTORY: Noncontributory. REVIEW OF SYSTEMS: Just abdominal pain. PHYSICAL EXAMINATION: GENERAL: He is awake. He is in mild discomfort. He is in no distress. VITAL SIGNS: His respirations are normal. ABDOMEN: Soft. There is some fullness suprapubic area. IMPRESSION: Urinary retention, amyotrophic lateral sclerosis, suspect clots. We will get a CT scan on the way down here. Last time he was in such pain, we brought him right down to cysto and then he followed up in the office. He needs a CT. I want to make sure the upper tracts are normal. He has a normal creatinine, normal hemoglobin. We will get a CT and then evacuated of clots, put a catheter back in. JOB# [id number] GREGORIO/AYANA
[2017-07-12] MEDS: NACL 0.9% IR SCH ×4 (00:03→05:54)
[2017-07-12] MEDS: LACTATED RINGERS 1,000 ML IV SCH (09:54)
[2017-07-12] MEDS: SODIUM CHLORIDE FLUSH SYRINGE 10 ML IV SCH (09:55)
[2017-07-12] MEDS ORDERED: LEVAQUIN PO SCH (10:00)
--- NOTE | 2017-07-12 12:45 | Progress Note ---
Assessment and Plan urine clear home with both spt and keller will remove keller tuesday Subjective Date of service: 07/12/17 Principal diagnosis: hematuria Objective - Constitutional Vitals: Vital Signs - 12hr 07/12/17 07/12/17 03:58 07:25 Temperature 98.0 F 97.9 F Pulse Rate 73 73 Respiratory 19 19 Rate Blood Pressure 113/71 113/71 O2 Sat by Pulse 97 98 Oximetry General appearance: Present: no acute distress - Respiratory Respiratory effort: normal - Gastrointestinal General gastrointestinal: Present: non-tender - Labs CBC & Chem 7: 07/11/17 05:34 07/11/17 05:34 Labs: Abnormal lab results 07/11/17 Range/Units 17:34 Urine WBC (Auto) 45.0 H (0.0-6.0) /HPF
--- NOTE | 2017-07-12 14:42 | Discharge Summary ---
Providers - Providers Date of Admission: 07/10/17 20:44 Date of discharge: 07/12/17 Attending physician: HELEN DONALDSON 07/10/17 21:31 Consult to Physician [CONS] Urgent Comment: Consulting Provider: JANICE MATTA Physician Instructions: Reason For Exam: urinary retension Primary care physician: DWAINE WATTERS Hospitalization Condition: Stable Disposition: DC-30 STILL A PATIENT - Discharge Diagnoses (1) Enlarged prostate with urinary retention Status: Acute Exam - Constitutional Vitals: Temp Pulse Resp BP Pulse Ox 97.9 F 73 19 113/71 98 07/12/17 07:25 07/12/17 07:25 07/12/17 07:25 07/12/17 07:25 07/12/17 07:25 Plan Follow up with: DWAINE WATTERS MD [Primary Care Provider] - 3-5 Days
[2017-07-12 17:43] VITALS: BP 141/87
== END 2017-07-12 18:30 | disposition home or self-care (01) | DRG 717 ==
LOC: ED 14:31 → 3A 20:44
PROVIDERS: ADMIT Internal Medicine; ATTEND Internal Medicine
PROC: 0T5C8ZZ Destruction of Bladder Neck, Via Natural or Artificial Opening Endoscopic (ICD-10-PCS; principal; 2017-07-10)
PROC: 0T2BX0Z Change Drainage Device in Bladder, External Approach (ICD-10-PCS; 2017-07-10)
PROC: 0T9B30Z Drainage of Bladder with Drainage Device, Percutaneous Approach (ICD-10-PCS; 2017-07-10)
DX: N40.1 Benign prostatic hyperplasia with lower urinary tract symptoms (principal); G12.21 Amyotrophic lateral sclerosis; N13.8 Other obstructive and reflux uropathy; R47.01 Aphasia; R33.8 Other retention of urine; R29.90 Unspecified symptoms and signs involving the nervous system; R31.9 Hematuria, unspecified
CPT/HCPCS: 36415; 51702; 74430; 80048; 80053; 81001; 85025; 85610; 85730; 96374; 96375; A4217; J1170; J1956; J2270; J2370; J2704; J3010; J7030; J7120; Q9967

== ENCOUNTER 2021-08-08 14:15 | Emergency (ER) | payer MEDICARE, OTHER ==
[2021-08-09] MEDS ORDERED: SODIUM CHLORIDE 0.9% IRR 500 ML BOTTLE IR ONE (02:13)
--- NOTE | 2021-08-09 02:28 | Emergency Department Report ---
ED General Adult HPI - General Chief complaint: Urogenital-Male Stated complaint: CATATHER CHANGE Time Seen by Provider: 08/09/21 01:12 Source: patient, family, RN notes reviewed, old records reviewed Mode of arrival: Wheelchair Limitations: Physical Limitation - History of Present Illness Initial comments: The patient was evaluated in the emergency department for symptoms described in the history of present illness. He/she was evaluated in the context of the global COVID-19 pandemic, which necessitated consideration that the patient might be at risk for infection with the virus that causes COVID-19. Institutional protocols and algorithms that pertain to the evaluation of patients at risk for COVID-19 are in a state of rapid change based on in formation released by regulatory bodies including the CDC and federal and state organizations. These policies and algorithms were followed during the patient's care in the emergency department. Please note that these policies, procedures and recommendations changed on a rapid basis. The patient is a pleasant and cooperative 70-year-old gentleman, who is wheelchair-bound, with a history of ALS, with a suprapubic Solares catheter in place, who typically follows with local [place] [facility], last had suprapubic 20 [place] Solares catheter drainage 5 to 6 weeks ago, presenting to the ER with son, with a family and patient articulated complaint of multiple request to have suprapubic Solares catheter change, secondary to a clog and lack of draining. No other symptoms described are reported. Patient and family provided verbal consent for sterile suprapubic Solares catheter change. This author changed suprapubic Solares catheter, please see procedure note, and patient and family endorsed complete resolution of symptoms. Please note that patient's most recent urine cultures have been negative for significant bacterial pathology. -: Sudden Severity scale (0 -10): 5 Consistency: constant Improves with: other (Replacement of a suprapubic Solares catheter) Associated Symptoms: denies other symptoms - Related Data Previous Rx's Medication Instructions Recorded Last Taken Type levoFLOXacin [Levaquin TAB] 500 mg PO QDAY #10 tablet 06/15/17 Unknown Rx Allergies Allergy/AdvReac Type Severity Reaction Status Date / Time aspirin Allergy Vomiting Verified 06/14/17 00:21 ED Review of Systems ROS: Stated complaint: CATATHER CHANGE Other details as noted in HPI Constitutional: see HPI (Review of systems as per patient and family). denies: fever Respiratory: denies: see HPI Cardiovascular: denies: chest pain Gastrointestinal: denies: abdominal pain, vomiting, diarrhea Genitourinary: as per HPI, other (Obstructed suprapubic Solares cath) ED Past Medical Hx - Past Medical History Previous Medical History?: Yes Hx Congestive Heart Failure: No Hx Diabetes: No Hx Asthma: No Hx COPD: No Hx HIV: No Additional medical history: ALS, indwelling cath - Surgical History Past Surgical History?: Yes Additional Surgical History: back - Social History Smoking Status: Never Smoker - Medications Home Medications: Home Medications Medication Instructions Recorded Confirmed Last Taken Type levoFLOXacin [Levaquin TAB] 500 mg PO QDAY #10 tablet 06/15/17 Unknown Rx ED Physical Exam - General Limitations: Physical Limitation General appearance: alert, in no apparent distress - Head Head exam: Present: atraumatic, normocephalic - Eye Eye exam: Present: normal appearance, EOMI. Absent: nystagmus - ENT ENT exam: Present: normal exam, normal orophraynx, mucous membranes moist, normal external ear exam - Neck Neck exam: Present: normal inspection, full ROM. Absent: tenderness, meningismus - Respiratory Respiratory exam: Present: normal lung sounds bilaterally. Absent: respiratory distress, wheezes, rales, rhonchi, stridor, decreased breath sounds - Cardiovascular Cardiovascular Exam: Present: regular rate, normal rhythm, normal heart sounds. Absent: bradycardia, tachycardia, irregular rhythm, systolic murmur, diastolic murmur, rubs, gallop - GI/Abdominal GI/Abdominal exam: Present: soft, other (There is a 20 Palau[place] yellow-colored suprapubic Solares catheter in place, without redness, pus, streaking, or tenderness around the stoma). Absent: distended, tenderness, guarding, rebound, rigid, pulsatile mass - Rectal Rectal exam: Present: deferred - exam: Present: normal inspection External exam: Present: normal external exam - Extremities Exam Extremities exam: Present: normal inspection, pedal edema, other (2+ pulses noted in the bilateral upper extremities. There is no long bony tenderness. The muscular compartments are soft. The pelvis is stable). Absent: calf tenderness - Back Exam Back exam: Present: normal inspection. Absent: tenderness, paraspinal tenderness - Neurological Exam Neurological exam: Present: alert, other (There is no facial droop. Moving upper extremities spontaneously. EOMI. Response to commands and questions. Family endorses that patient is at mental status baseline.) - Psychiatric Psychiatric exam: Present: normal mood - Skin Skin exam: Present: warm, dry, intact, normal color. Absent: rash ED Course Vital Signs 08/08/21 14:42 Temperature 97.6 F Pulse Rate 98 H Respiratory 20 Rate Blood Pressure 145/92 [Right] O2 Sat by Pulse 98 Oximetry - Catheter Insertion (Urinary) Indications: replaced: fell out/removed/no longer functioning Does Patient Have: no prosthetic heart valve, no penile implant, no artificial urethral sphincter Prophylactic Antibiotics Given: No Bladder Scan/US before Catherization: No Estimated Amount of Urine (mls): 500 Preparation: Providone-Iodine Type of Catheter Inserted: Solares Catheter Palauan Size: 16 Catheter Balloon Size (mls): 10 Topical Anesthesia Used: No Results: successfully catherized-immediate flow Patient Tolerated Procedure: well Complications: none Additional Comments: With patient and family's consent, initially tried to aspirate and decongestant indwelling 20 Palau[place] suprapubic Solares catheter, with a Eugenie syringe, and sterile saline. Inserted male and of Eugenie syringe into female and a Solares catheter, aspirated, however, not able to pass fluid, or obtain urine. Therefore, deflated Solares catheter balloon. 20 Palau[place] Solares catheter subsequently removed. Then, placed to sterile gloves after washing hands, and appropriately sterilized suprapubic area. A 16 Palau[place] Solares catheter is then gently inserted under sterile technique, and the suprapubic stoma, with immediate return of dark urine. 10 cc of sterile saline are placed/inflated into the balloon, and a Solares catheter subsequently attached to a leg bag. The patient tolerated the procedure well, endorsed complete resolution of symptoms, and there were no obvious complications ED Medical Decision Making - Lab Data Vital Signs 08/08/21 14:42 Temperature 97.6 F Pulse Rate 98 H Respiratory 20 Rate Blood Pressure 145/92 [Right] O2 Sat by Pulse 98 Oximetry - Medical Decision Making Differential diagnosis, including but not limited to: Obstructed suprapubic Solares catheter, nonfunctioning suprapubic Solares catheter Assessment and plan: 70-year-old gentleman, who was afebrile, with reassuring vital signs, not altered or encephalopathic, awake and alert, following commands, with family at the bedside, presenting to the ER today with a complaint and request to have a nonfunctioning suprapubic Solares catheter replaced. Attempted gentle manual aspiration and injection of sterile saline, which was unsuccessful. Patient and family provided consent and request to have Solares catheter changed out. Suprapubic Solares catheter is changed out, please see procedure note. On final reassessment, the patient and family endorse complete resolution of symptoms, in no acute distress, and they are ready for discharge. Patient and family deny fever, chills, nausea vomiting, change in mental status. The patient is likely chronically colonized, and I do not suspect acute infectious pathology. Patient and family are reliable to follow- up with outpatient [facility]. Return precautions are reviewed, all questions answered Critical care attestation.: If time is entered above; I have spent that time in minutes in the direct care of this critically ill patient, excluding procedure time. ED Disposition Clinical Impression: Encounter for Solares catheter replacement Disposition: HOME / SELF CARE / HOMELESS Is pt being admited?: No Does the pt Need Aspirin: No Condition: Good Additional Instructions: Please continue current outpatient medications. Please follow-up with your outpatient urologist for suprapubic Solares catheter maintenance within the next week. Please return to the emergency room right away with new pain, worsened pain, migration of pain, projectile vomiting, change in mental status, confusion, inability tolerate liquid feeds, new, worsened or different symptoms not present on the initial emergency room evaluation Referrals: [facility] [Provider Group] - 3-5 Days
[2021-08-09 03:49] VITALS: BP 118/76
== END 2021-08-09 03:55 | disposition home or self-care (01) ==
LOC: ED 14:15
DX: Z46.6 Encounter for fitting and adjustment of urinary device (principal); Z98.890 Other specified postprocedural states; Z88.6 Allergy status to analgesic agent
CPT/HCPCS: 51702; 99282